=== PATIENT | female | born 1960 | race Caucasian/White ===

== ENCOUNTER → 2022-09-22 | Day surgery (SDC) | payer OTHER ==
[2022-09-18 15:32] VITALS: BMI 36.3
[~2022-09-22] MED LIST: Dexamethasone 20 MG/5 ML VIAL ONE; EPINEPHrine 1 MG/ML AMP ONE; Fentanyl 100 MCG/2 ML VIAL ONE; Lidocaine 1% PF 5 ML VIAL ONE; Lidocaine 1% w/Epinephrine 1:100K 20 ML VIAL ONE; Midazolam HCl 2 mg/2 ml Vial ONE; Ondansetron PF 4 MG/2 ML Vial ONE; PROPOFOL 20 ML ONE; Propofol 1,000 MG/100 ML VIAL IV ONE; oFLOXacin 0.3% Opth 5 ML BOT ONE
== END ==
LOC: CSHSDC 08:58
PROVIDERS: ATTEND Otolaryngology Plastic Surgery within the Head & Neck
PROC: 0CBM8ZX Excision of Pharynx, Via Natural or Artificial Opening Endoscopic, Diagnostic (ICD-10-PCS; principal; 2022-09-22)
PROC: 0CBR8ZX Excision of Epiglottis, Via Natural or Artificial Opening Endoscopic, Diagnostic (ICD-10-PCS; principal; 2022-09-22)
PROC: 099670Z Drainage of Left Middle Ear with Drainage Device, Via Natural or Artificial Opening (ICD-10-PCS; principal; 2022-09-22)
PROC: 099570Z Drainage of Right Middle Ear with Drainage Device, Via Natural or Artificial Opening (ICD-10-PCS; principal; 2022-09-22)
PROC: 0CBT8ZX Excision of Right Vocal Cord, Via Natural or Artificial Opening Endoscopic, Diagnostic (ICD-10-PCS; principal; 2022-09-22)
PROC: 0CBV8ZX Excision of Left Vocal Cord, Via Natural or Artificial Opening Endoscopic, Diagnostic (ICD-10-PCS; principal; 2022-09-22)
DX: H90.6 Mixed conductive and sensorineural hearing loss, bilateral (principal); R49.0 Dysphonia; H65.23 Chronic serous otitis media, bilateral; J38.3 Other diseases of vocal cords; H69.93 Unspecified Eustachian tube disorder, bilateral; G47.00 Insomnia, unspecified; J43.9 Emphysema, unspecified; I10 Essential (primary) hypertension; F32.A Depression, unspecified; E11.9 Type 2 diabetes mellitus without complications; D64.9 Anemia, unspecified; E03.9 Hypothyroidism, unspecified; E78.5 Hyperlipidemia, unspecified; F17.210 Nicotine dependence, cigarettes, uncomplicated; Z79.899 Other long term (current) drug therapy; Z79.84 Long term (current) use of oral hypoglycemic drugs
CPT/HCPCS: 87102; 88305; 88331; 93005; 93010; J0171; J1100; J2250; J2405; J2704; J3010; L8699